=== PATIENT | male | born 2000 | race Caucasian/White ===

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

== ENCOUNTER 2019-02-06 07:05 | Emergency (ER) | payer OTHER ==
[2019-02-06 07:13] VITALS: BP 143/84; PULSE 95; RESP 18; TEMP 99.4
[2019-02-06] MEDS ORDERED: CIPROFLOXACIN-DEXAMETH 0.3-0.1% DROPS 7.5 ML BTL LEFT EAR STA (07:27)
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
== END 2019-02-06 07:43 | disposition home or self-care (01) ==
LOC: EC 07:05
DX: H60.92 Unspecified otitis externa, left ear (principal); F17.200 Nicotine dependence, unspecified, uncomplicated
CPT/HCPCS: 99282